=== PATIENT | male | born 1990 | race Caucasian/White ===

== ENCOUNTER 2024-12-02 07:50 | Outpatient (CLI) | payer BC, SELFPAY | END 2024-12-02 07:51 | disposition home or self-care (01) | LOC: FRMREF 07:54 | PROVIDERS: Visit Provider Physician Assistant Medical | DX: R06.02 Shortness of breath (principal); R10.9 Unspecified abdominal pain; E11.9 Type 2 diabetes mellitus without complications | CPT/HCPCS: 87086 ==

== ENCOUNTER 2024-12-10 16:13 | Outpatient (CLI) | payer BC, SELFPAY ==
--- NOTE | 2024-12-10 16:45 | CRLHL7_ITS ---
For Patients: As a result of the Century Cures Act, medical imaging exams and procedure reports are released immediately into your electronic medical record. You may view this report before your referring provider. If you have questions, please contact your health care provider. Indication: abdominal pain and bloating Technique: Noncontrast CT abdomen and pelvis Please note that all CT scans at this facility use dose modulation, iterative reconstruction, and/or weight-based dosing when appropriate to reduce radiation dose to as low as reasonably achievable. Comparison: None Findings: Lung bases clear. Liver measures 20.9 cm. 5 millimeter stone in the gallbladder. Spleen measures 14.0 cm. Pancreas is normal. Adrenal glands are normal. Normal kidneys. Retroperitoneal and mesenteric adenopathy with multiple lymph nodes measuring up to 2.3 cm. Bilateral pelvic sidewall and inguinal lymph nodes are present with the largest lymph node in the right inguinal space measuring 3.5 cm. Bladder incompletely distended. Normal ureters. No bowel obstruction or free air. No free fluid. No abscess. Normal appendix. Degenerative changes. No vertebral body fracture. Impression: Intra-abdominal and intrapelvic adenopathy with innumerable lymph nodes. The largest lymph node is in the right inguinal space measuring 3.5 cm. Ultrasound-guided core needle biopsy recommended. Hepatosplenomegaly. Cholelithiasis. Please note that all CT scans at this facility use dose modulation, iterative reconstruction, and/or weight-based dosing when appropriate to reduce radiation dose to as low as reasonably achievable. Dictated by Ruben Smith MD @ 12/11/2024 8:45:07 AM (Electronically Signed)
--- NOTE | 2024-12-13 09:43 | PC.NURSE ---
Ernst Botello requested information from an urgent care visit on 12/02/2024, obtained [facility] and sent information
== END 2024-12-10 16:14 | disposition home or self-care (01) ==
LOC: CT 16:13
PROVIDERS: Visit Provider Physician Assistant Medical
DX: R10.84 Generalized abdominal pain (principal); R59.0 Localized enlarged lymph nodes; R16.2 Hepatomegaly with splenomegaly, not elsewhere classified; K80.20 Calculus of gallbladder without cholecystitis without obstruction; R06.02 Shortness of breath; E11.9 Type 2 diabetes mellitus without complications
CPT/HCPCS: 74176